=== PATIENT | female | born 1940 | race Caucasian/White ===

== ENCOUNTER 2019-09-11 09:22 | Day surgery (SDC) | payer MEDICARE ==
[2019-09-08 11:27] VITALS: BMI 20.5
--- NOTE | 2019-09-10 21:22 | HP ---
HISTORY OF PRESENT ILLNESS: Ms. Ferrari is a 78-year-old woman, here to discuss several years' worth of severe lower back pain with associated severe right lower extremity L5 pain. She reports that this worsens when up and walking and this caused her to visit the emergency department . She denies any weakness. Pain worsens upright and improves with sitting and rest. 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 REVIEW OF SYSTEMS: The patient denies fever, chills, weight loss, or night sweats. Denies double vision, blurred vision, or difficulty swallowing. Denies chest pain or shortness of breath. Reports pain in the low back and right lower extremity. PAST MEDICAL HISTORY: Significant for anxiety, hyperlipidemia, and osteoporosis. CURRENT MEDICATIONS: 1. Waban. 2. Vitamin D. 3. Alendronate. 4. Atorvastatin. 5. Probiotics. 6. Mirtazapine. 7. Citalopram. 8. Gabapentin. PAST SURGICAL HISTORY: None listed. ALLERGIES: ASPIRIN. PHYSICAL EXAMINATION: The patient is alert and oriented x3. Gait is severely antalgic, reliant on cane for mobility. normal. Positive right straight leg raise, negative on the left. PLAN: Dr. Bernal met with the patient, reviewed imaging, advocated for right L4-S1 decompression with right L5 foraminotomy. He explained to the patient risks, benefits, and alternatives to the procedure. The patient expressed understanding and elected to move forward with surgery as discussed. I do believe the patient is mentally competent and capable of making medical decisions for herself. We will move forward with surgery as planned. Job ID: [id number]
[2019-09-11] MEDS ORDERED: Glycopyrrolate 0.2 MG/ML 5 ML SYRINGE ONE (10:00)
[2019-09-11] MEDS ORDERED: Ondansetron PF 4 MG/2 ML Vial ONE (10:00)
[2019-09-11] MEDS ORDERED: PROPOFOL 200 MG/20 ML VIAL ONE (10:00)
[2019-09-11] MEDS ORDERED: Rocuronium Bromide 10 MG/ML (10ML VIAL) ONE (10:00)
[2019-09-11] MEDS ORDERED: ePHEDrine/0.9% NaCl/PF SYRINGE 50 mg/10 ml ONE (10:00)
[2019-09-11] MEDS ORDERED: Lidocaine 1% PF 5 ML VIAL ONE (10:00)
[2019-09-11] MEDS ORDERED: Bupivacaine/Epinephrine 0.5% 10 ML VIAL ONE (12:12)
[2019-09-11] MEDS ORDERED: Thrombin 5000 UNITS/5 ML VIAL ONE (12:12)
[2019-09-11] MEDS ORDERED: Fentanyl 100 MCG/2 ML VIAL ONE ×3 (12:19→14:18)
[2019-09-11] MEDS ORDERED: HYDROcodone/Acetaminophen 5/325 mg Tablet ONE (15:42)
--- NOTE | 2019-09-12 11:12 | OP ---
DATE OF PROCEDURE: 09/11/2019 TELEMETRY NURSE: Heriberto Mansfield PA-C INDICATION: Pain. DIAGNOSIS: Lumbar radiculopathy. PROCEDURE PERFORMED: Right-sided L4 through the top of S1 decompression and a right L5 foraminotomy. ANESTHESIA: General. DESCRIPTION OF PROCEDURE: The patient was brought into the operating room and placed under general anesthesia. She was flipped from the supine to prone position on the operating room table. A linear incision was planned over the L4 through S1 segment. After prepping and draping and after an appropriate operative pause, the incision was created. The soft tissues were swept right of midline. A high-speed cutting drill bit was used to perform a laminectomy at L4-L5 and L5-S1. After decompressing the lateral recesses, our attention was directed towards the exiting L5 nerve root where foraminotomy was performed over the exiting nerve root as it entered the foramina at that level. After decompressing those 2 segments, the wound was irrigated. Hemostasis was maintained throughout. The wound was then closed in anatomic layers and a pressure dressing was applied. There were no known procedural complications. Job ID: [id number]
== END 2019-09-11 17:10 | disposition home or self-care (01) ==
LOC: SDC 09:22
PROVIDERS: ATTEND Neurological Surgery
PROC: 01NB0ZZ Release Lumbar Nerve, Open Approach (ICD-10-PCS; principal; 2019-09-11)
DX: M48.061 Spinal stenosis, lumbar region without neurogenic claudication (principal); M54.16 Radiculopathy, lumbar region; M41.26 Other idiopathic scoliosis, lumbar region; M81.0 Age-related osteoporosis without current pathological fracture; J43.9 Emphysema, unspecified; F32.9 Major depressive disorder, single episode, unspecified; F41.9 Anxiety disorder, unspecified; E78.5 Hyperlipidemia, unspecified; M19.90 Unspecified osteoarthritis, unspecified site; Z79.83 Long term (current) use of bisphosphonates; Z79.899 Other long term (current) drug therapy; Z88.8 Allergy status to other drugs, medicaments and biological substances
CPT/HCPCS: 76000; J0690; J2001; J2405; J2704; J3010; J3490